=== PATIENT | male | born 1955 ===

== ENCOUNTER 2017-03-27 08:00 | Emergency (ER) | payer OTHER, BC ==
[2017-03-27 08:06] VITALS: TEMP 97; O2SAT 100; BMI 25.7
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
[2017-03-27 10:32] VITALS: BP 144/75; PULSE 82; RESP 14
--- NOTE | 2017-03-27 10:39 | RAD ---
PROCEDURE: Left Knee Radiographs. HISTORY: Pain. COMPARISON: None. FINDINGS: BONES: Bone alignment and mineralization are normal. There is no acute fracture or bone destruction. JOINTS: There is mild tricompartmental degenerative osteoarthrosis with mild reduced joint spaces and tibial spiking, worse in the medial compartment. JOINT EFFUSION: None. OTHER FINDINGS: None. IMPRESSION: No acute fracture or dislocation.
--- NOTE | 2017-03-27 10:42 | RAD ---
PROCEDURE: Radiographs of the Lumbar Spine. HISTORY: Back pain COMPARISON: No prior. FINDINGS: BONES: There is normal alignment of the lumbar vertebral bodies. Lumbar lordosis is maintained. Vertebral bodies are normal in height. There is mild diffuse bone demineralization. There is no acute fracture, spondylolysis or spondylolisthesis. DISC SPACES: There is multilevel degenerative disc disease with anterior osteophytes, mild reduced disc heights and multilevel facet arthropathy, worse at L5-S1. . OTHER FINDINGS: There are no pathologic soft tissue calcifications. Both sacroiliac joints are normal. IMPRESSION: Mild multilevel degenerative disc disease, worse at L5-S1. No acute fracture, spondylolysis or spondylolisthesis.
--- NOTE | 2017-03-27 11:52 | CARD ---
APPROVED REPORT EKG Measurement Heart [id number] MA [id number] [id number] <Conclusion> Sinus bradycardia Otherwise normal ECG
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
== END 2017-03-27 14:30 | disposition home or self-care (01) ==
LOC: H.ER 08:00
DX: M25.561 Pain in right knee (principal); M25.562 Pain in left knee; M54.5 Low back pain; M25.519 Pain in unspecified shoulder; V43.62XA Car passenger injured in collision with other type car in traffic accident, initial encounter; Y92.410 Unspecified street and highway as the place of occurrence of the external cause; M51.37 Other intervertebral disc degeneration, lumbosacral region
CPT/HCPCS: 72100; 72125; 73562; 93005; 96372; 99284; J1885